=== PATIENT | female | born 1990 | race Caucasian/White ===

== ENCOUNTER → 2018-05-24 | Outpatient (CLI) | payer BC ==
[~2018-05-24] MED LIST: PREN-153 OR
[2018-05-24 11:29] LABS: Basophils # (auto) 0 uL; Basophils % (auto) 0.3 % (0.0-2.0); Eosinophils # (auto) 0.1 uL; Hematocrit 43.7 % (36.0-46.0); Hemoglobin 14.7 g/dL (12.2-16.2); Lymphocytes # (auto) 2.1 uL; Lymphocytes % (auto) 24.7 % (10.0-50.0); Mean Corpuscular Hemoglobin 27.6 pg (28.0-32.0); Mean Corpuscular Hgb Conc. 33.7 g/dL (32.0-36.0); Mean Corpuscular Volume 81.9 fL (80.0-100.0); Monocytes # (auto) 0.6 uL; Monocytes % (auto) 6.7 % (0.0-12.0); Neutrophils # (auto) 5.7 uL; Neutrophils % (auto) 67.3 % (37.0-80.0); Nucleated Red Blood Cells % 0.2 %; Platelet Count (auto) 309 10^3/uL (140-450); Red Blood Cells 5.34 10^6/uL (4.0-5.20); Red Cell Distribution Width 13.2 % (11.8-14.3); White Blood Cell 8.5 10^3/uL (4.4-10.8)
[2018-05-25 04:06] LABS: RPR Non Reactive (Non Reactive)
== END | disposition home or self-care (01) ==
LOC: LAB 09:48
PROVIDERS: ATTEND Obstetrics & Gynecology
DX: Z34.80 Encounter for supervision of other normal pregnancy, unspecified trimester (principal); Z72.51 High risk heterosexual behavior; F41.9 Anxiety disorder, unspecified; Z3A.40 40 weeks gestation of pregnancy
CPT/HCPCS: 36415; 83036; 84144; 84702; 85025; 86592; 86703; 86762; 86850; 86900; 86901; 87340

== ENCOUNTER 2018-07-05 14:11 | Emergency (ER) | payer BC ==
[~2018-07-05] VITALS: Ht 172.7 cm; Wt 74.4 kg
[2018-07-05 14:30] VITALS: BP 119/75
== END 2018-07-05 16:05 | disposition home or self-care (01) ==
LOC: ER 14:11
DX: O9A.212 Injury, poisoning and certain other consequences of external causes complicating pregnancy, second trimester (principal); M54.2 Cervicalgia; Z3A.18 18 weeks gestation of pregnancy; V43.52XA Car driver injured in collision with other type car in traffic accident, initial encounter; Y93.89 Activity, other specified; Y99.8 Other external cause status; Y92.89 Other specified places as the place of occurrence of the external cause
CPT/HCPCS: 36415; 76805; 84702

== ENCOUNTER → 2018-09-06 | Outpatient (CLI) | payer BC ==
[2018-09-06 08:11] LABS: Basophils # (auto) 0.1 uL; Basophils % (auto) 0.4 % (0.0-2.0); Eosinophils # (auto) 0.1 uL; Eosinophils % (auto) 0.8 % (0.0-7.0); Hematocrit 37.2 % (36.0-46.0); Hemoglobin 12.5 g/dL (12.2-16.2); Lymphocytes # (auto) 1.5 uL; Lymphocytes % (auto) 11.5 % (10.0-50.0); Mean Corpuscular Hemoglobin 27.8 pg (28.0-32.0); Mean Corpuscular Hgb Conc. 33.6 g/dL (32.0-36.0); Mean Corpuscular Volume 82.7 fL (80.0-100.0); Monocytes # (auto) 0.8 uL; Monocytes % (auto) 6.1 % (0.0-12.0); Neutrophils # (auto) 10.8 uL; Neutrophils % (auto) 81.2 % (37.0-80.0); Platelet Count (auto) 240 10^3/uL (140-450); Red Blood Cells 4.49 10^6/uL (4.0-5.20); Red Cell Distribution Width 13.2 % (11.8-14.3); White Blood Cell 13.3 10^3/uL (4.4-10.8)
== END | disposition home or self-care (01) ==
LOC: LAB 07:52
PROVIDERS: ATTEND Obstetrics & Gynecology
DX: O99.810 Abnormal glucose complicating pregnancy (principal); Z3A.27 27 weeks gestation of pregnancy
CPT/HCPCS: 36415; 82951; 85025

== ENCOUNTER 2018-10-19 10:10 | Observation (INO) | payer BC | END 2018-10-19 11:20 | disposition home or self-care (01) | DRG 833 | LOC: LDRP 10:10 | PROVIDERS: ADMIT Obstetrics & Gynecology; ATTEND Obstetrics & Gynecology | DX: O36.63X0 Maternal care for excessive fetal growth, third trimester, not applicable or unspecified (principal); Z3A.33 33 weeks gestation of pregnancy | CPT/HCPCS: 59025; 76818; 81002; G0378 ==

== ENCOUNTER 2018-10-25 10:13 | Observation (INO) | payer BC ==
[2018-10-25] MEDS: NIFEdipine 10 MG CAP ONE (11:36)
[2018-10-25] MEDS ORDERED: NIF10C PO (12:43)
== END 2018-10-25 12:35 | disposition home or self-care (01) | DRG 833 ==
LOC: LDRP 10:13
PROVIDERS: ADMIT Specialist; ATTEND Specialist
DX: O60.03 Preterm labor without delivery, third trimester (principal); Z3A.34 34 weeks gestation of pregnancy
CPT/HCPCS: 59025; 76815; 76818; 81002; G0378

== ENCOUNTER 2018-11-02 08:00 | Observation (INO) | payer BC ==
[~2018-11-02 08:00] MED LIST changes: +NIF10C PO
== END 2018-11-02 09:45 | disposition home or self-care (01) | DRG 833 ==
LOC: LDRP 08:00
PROVIDERS: ADMIT Specialist; ATTEND Specialist
DX: O60.03 Preterm labor without delivery, third trimester (principal); Z3A.35 35 weeks gestation of pregnancy
CPT/HCPCS: 59025; 76818; 81002; G0378

== ENCOUNTER 2018-11-07 15:05 | Observation (INO) | payer BC ==
[~2018-11-07 15:05] MED LIST changes: -NIF10C PO
[2018-11-07] MEDS ORDERED: TERBUTALINE SULFATE 1 MG/ML 1ML VIAL SC ONE (16:30)
[2018-11-07] MEDS ORDERED: TERBUTALINE SULFATE 1 MG/ML 1ML VIAL SC SCH (17:00)
== END 2018-11-07 17:20 | disposition home or self-care (01) | DRG 833 ==
LOC: LDRP 15:05
PROVIDERS: ADMIT Obstetrics & Gynecology; ATTEND Obstetrics & Gynecology
DX: O60.03 Preterm labor without delivery, third trimester (principal); O36.63X0 Maternal care for excessive fetal growth, third trimester, not applicable or unspecified; O62.9 Abnormality of forces of labor, unspecified; Z3A.36 36 weeks gestation of pregnancy
CPT/HCPCS: 59025; 76818; 81002; 96372; G0378; J3105

== ENCOUNTER → 2018-11-09 | Outpatient (CLI) | payer BC ==
[2018-11-09 10:39] LABS: Basophils # (auto) 0 uL; Basophils % (auto) 0.3 % (0.0-2.0); Eosinophils # (auto) 0.1 uL; Lymphocytes # (auto) 3.4 uL; Mean Corpuscular Hemoglobin 24.7 pg (28.0-32.0); Mean Corpuscular Hgb Conc. 32.2 g/dL (32.0-36.0); Mean Corpuscular Volume 76.6 fL (80.0-100.0)
[2018-11-09 10:40] LABS: Eosinophils % (auto) 0.7 % (0.0-7.0); Hematocrit 34.9 % (36.0-46.0); Hemoglobin 11.2 g/dL (12.2-16.2); Lymphocytes % (auto) 21.8 % (10.0-50.0); Monocytes # (auto) 1.3 uL; Monocytes % (auto) 8.4 % (0.0-12.0); Neutrophils # (auto) 10.7 uL; Neutrophils % (auto) 68.8 % (37.0-80.0); Platelet Count (auto) 346 10^3/uL (140-450); Red Blood Cells 4.55 10^6/uL (4.0-5.20); Red Cell Distribution Width 13.9 % (11.8-14.3); White Blood Cell 15.6 10^3/uL (4.4-10.8)
[2018-11-10 07:09] LABS: RPR Non Reactive (Non Reactive)
== END | disposition home or self-care (01) ==
LOC: LAB 10:26
PROVIDERS: ATTEND Obstetrics & Gynecology
DX: Z34.83 Encounter for supervision of other normal pregnancy, third trimester (principal); Z3A.36 36 weeks gestation of pregnancy
CPT/HCPCS: 36415; 85025; 86592

== ENCOUNTER 2018-11-16 14:17 | Observation (INO) | payer BC | END 2018-11-16 15:35 | disposition home or self-care (01) | DRG 833 | LOC: LDRP 14:17 | PROVIDERS: ADMIT Specialist; ATTEND Specialist | DX: O60.03 Preterm labor without delivery, third trimester (principal); Z3A.37 37 weeks gestation of pregnancy | CPT/HCPCS: 59025; 76818; 81002; G0378 ==

== ENCOUNTER 2018-11-21 01:40 | Observation (INO) | payer BC ==
[2018-11-21] MEDS ORDERED: LACTATED RINGER'S 1,000 ML IV ONE (02:07)
[2018-11-21] MEDS ORDERED: TERBUTALINE SULFATE 1 MG/ML 1ML VIAL SC ONE (02:08)
[2018-11-21] MEDS ORDERED: TERBUTALINE SULFATE 1 MG/ML 1ML VIAL SC SCH (02:15)
== END 2018-11-21 03:40 | disposition home or self-care (01) | DRG 833 ==
LOC: LDRP 01:40
PROVIDERS: ADMIT Obstetrics & Gynecology; ATTEND Obstetrics & Gynecology
DX: O62.9 Abnormality of forces of labor, unspecified (principal); Z3A.38 38 weeks gestation of pregnancy
CPT/HCPCS: 59025; 81002; 96372; G0378; J3105; 96365; 96366

== ENCOUNTER 2018-11-21 19:15 | Observation (INO) | payer BC ==
[~2018-11-21] VITALS: Ht 172.7 cm; Wt 72.6 kg
[2018-11-21 19:54] LABS: Basophils # (auto) 0.1 uL; Eosinophils # (auto) 0.1 uL; Lymphocytes # (auto) 3.3 uL; Red Cell Distribution Width 14.4 % (11.8-14.3)
[2018-11-21 19:56] LABS: Basophils % (auto) 0.6 % (0.0-2.0); Eosinophils % (auto) 0.4 % (0.0-7.0); Hematocrit 33.8 % (36.0-46.0); Mean Corpuscular Hemoglobin 24.3 pg (28.0-32.0); Mean Corpuscular Hgb Conc. 32.6 g/dL (32.0-36.0); Mean Corpuscular Volume 74.8 fL (80.0-100.0); Monocytes # (auto) 1.3 uL; Monocytes % (auto) 8.7 % (0.0-12.0); Neutrophils # (auto) 10.4 uL; Neutrophils % (auto) 68.3 % (37.0-80.0); Platelet Count (auto) 328 10^3/uL (140-450); Red Blood Cells 4.52 10^6/uL (4.0-5.20); White Blood Cell 15.2 10^3/uL (4.4-10.8)
[2018-11-21 20:02] LABS: Urine Bacteria FEW /hpf (None Seen); Urine Blood Negative /uL (Negative); Urine Specific Gravity 1.004 (1.001-1.035); Urine WBC 1 /hpf (0 - 5)
[2018-11-21] MEDS: TERBUTALINE SULFATE 1 MG/ML 1ML VIAL SC ONE ×2 (20:02→20:24)
[2018-11-21 20:07] LABS: INR 0.89 (0.9-1.15); Partial Thromboplastin Time 26.7 sec (23.78-33.04); Prothrombin Time 9.6 sec (9.27-12.13)
[2018-11-21] MEDS: TERBUTALINE SULFATE 1 MG/ML 1ML VIAL SC SCH ×2 (20:08→20:28)
[2018-11-21 20:10] LABS: Albumin 2.9 g/dL (3.4-5.0); Calcium 8.1 mg/dL (8.5-10.1); Potassium 3.7 mmol/L (3.5-5.1)
[2018-11-21 20:14] LABS: BUN/Creatinine Ratio 7.7; Bilirubin, Total 0.4 mg/dL (0.2-1.0); Total Protein 6.8 g/dL (6.4-8.2)
[2018-11-21] MEDS ORDERED: NIFEdipine 10 MG CAP PO ONE (20:30)
[2018-11-24 06:11] LABS: RPR Non Reactive (Non Reactive)
== END 2018-11-21 21:13 | disposition home or self-care (01) | DRG 833 ==
LOC: LDRP 19:15
PROVIDERS: ADMIT Obstetrics & Gynecology; ATTEND Obstetrics & Gynecology
DX: O62.9 Abnormality of forces of labor, unspecified (principal); Z3A.38 38 weeks gestation of pregnancy
CPT/HCPCS: 36415; 59025; 80053; 81001; 81002; 85025; 85610; 85730; 86592; 86850; 86900; 86901; 94760; 96372; G0378; J3105; 96375

== ENCOUNTER 2018-11-23 07:50 | Observation (INO) | payer BC ==
[2018-11-23] MEDS ORDERED: NIF10C GT (10:26)
== END 2018-11-23 09:50 | disposition home or self-care (01) | DRG 833 ==
LOC: LDRP 07:50
PROVIDERS: ADMIT Specialist; ATTEND Specialist
DX: O62.9 Abnormality of forces of labor, unspecified (principal); Z3A.00 Weeks of gestation of pregnancy not specified
CPT/HCPCS: 59025; 76818; 81002; G0378

== ENCOUNTER 2018-11-25 04:52 | Inpatient (IN) | payer BC ==
[~2018-11-25] VITALS: Ht 172.7 cm; Wt 87.1 kg
[2018-11-25] VITALS (9 sets, daily range): BP systolic 88–130; BP diastolic 64–85
[~2018-11-25 04:52] MED LIST changes: +NIF10C GT
[2018-11-25] MEDS: LACTATED RINGER'S 1,000 ML IV SCH ×2 (06:00→13:12)
[2018-11-25 06:03] LABS: Basophils # (auto) 0.1 uL; Basophils % (auto) 0.6 % (0.0-2.0); Eosinophils # (auto) 0.1 uL; Eosinophils % (auto) 1.1 % (0.0-7.0); Red Cell Distribution Width 14.4 % (11.8-14.3)
[2018-11-25 06:05] LABS: Hematocrit 34.8 % (36.0-46.0); Hemoglobin 11.3 g/dL (12.2-16.2); Lymphocytes # (auto) 3.1 uL; Lymphocytes % (auto) 25.1 % (10.0-50.0); Mean Corpuscular Hemoglobin 24.3 pg (28.0-32.0); Mean Corpuscular Hgb Conc. 32.6 g/dL (32.0-36.0); Mean Corpuscular Volume 74.4 fL (80.0-100.0); Monocytes # (auto) 0.9 uL; Monocytes % (auto) 7.4 % (0.0-12.0); Neutrophils # (auto) 8.1 uL; Neutrophils % (auto) 65.8 % (37.0-80.0); Platelet Count (auto) 343 10^3/uL (140-450); Red Blood Cells 4.67 10^6/uL (4.0-5.20); White Blood Cell 12.3 10^3/uL (4.4-10.8)
[2018-11-25 06:06] LABS: Urine Amorphous Crystal FEW /hpf (None Seen); Urine Bacteria FEW /hpf (None Seen); Urine Blood Negative /uL (Negative); Urine Specific Gravity 1.007 (1.001-1.035); Urine WBC 2 /hpf (0 - 5)
[2018-11-25 06:21] LABS: INR 0.87 (0.9-1.15); Partial Thromboplastin Time 26.8 sec (23.78-33.04); Prothrombin Time 9.4 sec (9.27-12.13)
[2018-11-25 06:33] LABS: Albumin 2.9 g/dL (3.4-5.0); Calcium 8.3 mg/dL (8.5-10.1); Potassium 3.6 mmol/L (3.5-5.1)
[2018-11-25 06:37] LABS: Bilirubin, Total 0.3 mg/dL (0.2-1.0); Total Protein 6.9 g/dL (6.4-8.2)
[2018-11-25] MEDS ORDERED: TETRACAINE 1% INJ 2 ML VIAL IJ ONE (09:55)
[2018-11-25] MEDS ORDERED: MORPHINE SULF(PF) 0.5MG/ML 10ML VIAL ONE (09:58)
[2018-11-25] MEDS ORDERED: ceFAZolin 1GM VL ONE (09:59)
[2018-11-25] MEDS ORDERED: OXYTOCIN 10 UNIT/ML 10ML VIAL ONE (09:59)
[2018-11-25] MEDS ORDERED: ePHEDrine SULFATE 50 MG/ML AMP ONE (09:59)
[2018-11-25] MEDS ORDERED: PHENYLEPHRINE HCL 10 MG/ML VL ONE (09:59)
[2018-11-25] MEDS ORDERED: D5 IV SCH (11:07)
[2018-11-25] MEDS ORDERED: LACTATED RINGERS IV SCH (11:07)
[2018-11-25] MEDS ORDERED: OXYTOCIN IV SCH (11:07)
[2018-11-25] MEDS ORDERED: MORPHINE SULFATE 10 MG/ML INJ 1ML SDV IV PRN (11:15)
[2018-11-25] MEDS ORDERED: ONDANSETRON HCL 4 MG/2 ML VIAL IV PRN ×2 (11:15→11:30)
--- NOTE | 2018-11-25 11:25 | NUR ---
Teaching: Discussed benefits of and risks associated with not . Discussed different positions, proper latch, feeding cues, and baby-led . Provided information of medication side effects related to . All questions and concerns addressed at this time. Patient verbalized understanding of information.
[2018-11-25] MEDS ORDERED: diphenhdrAMINE HCL 50 MG/1 ML VL IV PRN (11:30)
[2018-11-25] MEDS ORDERED: HYDROmorphone HCL 2 MG/ML VL IV PRN (11:30)
[2018-11-25] MEDS ORDERED: MORPHINE SULFATE 4 MG/ML SYR/VIAL IV PRN (11:30)
[2018-11-25] MEDS ORDERED: ONDANSETRON HCL 4 MG/2 ML VIAL IV ONE (11:30)
[2018-11-25] MEDS ORDERED: NALOXONE HCL 0.4 MG/ML VIAL IV PRN ×2 (11:30)
--- NOTE | 2018-11-25 11:55 | NUR ---
SBAR received from RELIEF SALESPERSON. Stated fundus 2 below, firm no bleeding. Abdominal binder in placed. SCDs on BLE. EBL 500ml. Received duramorph. Pt stable.
--- NOTE | 2018-11-25 12:25 | NUR ---
Post Op for LDRP: Received patient from PACU via bed to room 4. Patient A/A/Ox4, abdominal binder and bilateral SCD's are in place, IV fluids placed on pump and infusing per order, incisional site dressing clean/dry/intact and Costa Catheter to gravity draining clear yellow urine. Incentive Spirometer at bedside and instruction on proper use with return demonstration done by patient. Addendum: 11/25/18 at 1337 by JESSICA RANGEL RN Vital signs started as per policy. See graphics. at bedsd.
--- NOTE | 2018-11-25 12:30 | NUR ---
Reviewed information in [facility] booklet with patient.
[2018-11-25] MEDS: KETOROLAC TROMETH 30 MG/ML 1ML VIAL IV PRN ×2 (16:27→22:07)
[2018-11-25] MEDS: ceFAZolin 1GM/50ML 50 ML IV SCH (18:46)
[2018-11-25 20:37] LABS: Basophils # (auto) 0 uL; Eosinophils # (auto) 0.1 uL; Eosinophils % (auto) 0.5 % (0.0-7.0); Monocytes # (auto) 1.2 uL
[2018-11-25 20:42] LABS: Basophils % (auto) 0.3 % (0.0-2.0); Hematocrit 31.9 % (36.0-46.0); Hemoglobin 10.3 g/dL (12.2-16.2); Lymphocytes # (auto) 2.7 uL; Lymphocytes % (auto) 15.2 % (10.0-50.0); Mean Corpuscular Hemoglobin 24.4 pg (28.0-32.0); Mean Corpuscular Hgb Conc. 32.3 g/dL (32.0-36.0); Mean Corpuscular Volume 75.5 fL (80.0-100.0); Neutrophils # (auto) 13.5 uL; Nucleated Red Blood Cells % 0.1 %; Platelet Count (auto) 303 10^3/uL (140-450); Red Blood Cells 4.22 10^6/uL (4.0-5.20); Red Cell Distribution Width 14.1 % (11.8-14.3); White Blood Cell 17.5 10^3/uL (4.4-10.8)
--- NOTE | 2018-11-25 23:31 | NUR ---
Ambulation: Patient OOB with standby assistance by RN. Patient ambulated to bathroom with steady gait. Patient keeps rodriguez catheter in per 's orders until the morning. [facility] teaching provided with returned demonstration by patient. Clean gown provided and bed linen changed. Patient ambulated back to bed with steady gait and no distress noted.
[2018-11-26] MEDS: ceFAZolin 1GM/50ML 50 ML IV SCH ×2 (02:12→10:00)
[2018-11-26 03:11] VITALS: BP 108/66
[2018-11-26] MEDS: KETOROLAC TROMETH 30 MG/ML 1ML VIAL IV PRN ×2 (03:59→10:00)
[2018-11-26] MEDS: LACTATED RINGER'S 1,000 ML IV SCH ×3 (05:12→13:12)
[2018-11-26 05:52] LABS: Basophils # (auto) 0 uL; Eosinophils # (auto) 0.1 uL; Eosinophils % (auto) 0.6 % (0.0-7.0); Lymphocytes # (auto) 1.9 uL; Monocytes # (auto) 1.1 uL
[2018-11-26 05:54] LABS: Basophils % (auto) 0.1 % (0.0-2.0); Hematocrit 29.8 % (36.0-46.0); Lymphocytes % (auto) 13.5 % (10.0-50.0); Mean Corpuscular Hgb Conc. 33.4 g/dL (32.0-36.0); Mean Corpuscular Volume 74.8 fL (80.0-100.0); Monocytes % (auto) 8.1 % (0.0-12.0); Neutrophils # (auto) 10.9 uL; Neutrophils % (auto) 77.7 % (37.0-80.0); Platelet Count (auto) 283 10^3/uL (140-450); Red Blood Cells 3.99 10^6/uL (4.0-5.20); Red Cell Distribution Width 14.5 % (11.8-14.3)
[2018-11-26 07:07] LABS: RPR Non Reactive (Non Reactive)
[2018-11-26 07:30] VITALS: BP 106/61
--- NOTE | 2018-11-26 07:30 | NUR ---
Rodriguez catheter dc'd Order to discontinue rodriguez catheter. Rodriguez dc'd with clean technique following deflation of balloon. Patient tolerated well with no complaints of pain. Continue care.
[2018-11-26] MEDS ORDERED: SIMETHICONE 80 MG CHEWABLE TABLET PO PRN (11:00)
[2018-11-26] MEDS ORDERED: HYDROcodone-ACET 5/325MG TAB PO PRN (11:00)
[2018-11-26] MEDS: DOCUSATE SOD 100 MG CAP PO SCH ×2 (11:30→21:40)
[2018-11-26 12:00] VITALS: BP 93/53
[2018-11-26] MEDS: IBUPROFEN 800 MG TAB PO PRN ×2 (13:30→21:40)
[2018-11-26 15:00] VITALS: BP 101/64
[2018-11-26 18:30] VITALS: BP 102/70
--- NOTE | 2018-11-26 18:35 | NUR ---
Pt assessment completed. Lower abdominal incision inspected. Incision open to air, no redness/swelling or drainage noted, all bernice intact.
[2018-11-26 22:59] VITALS: BP 98/58
[2018-11-27] MEDS: HYDROcodone-ACET 5/325MG TAB PO PRN ×5 (00:16→21:48)
[2018-11-27 03:00] VITALS: BP 97/46
[2018-11-27 07:15] VITALS: BP 100/61
[2018-11-27] MEDS: IBUPROFEN 800 MG TAB PO PRN ×2 (07:23→15:59)
[2018-11-27] MEDS: DOCUSATE SOD 100 MG CAP PO SCH ×2 (10:11→21:46)
[2018-11-27 10:30] VITALS: BP 98/62
[2018-11-27 15:05] VITALS: BP 96/57
[2018-11-27 18:30] VITALS: BP 111/70
--- NOTE | 2018-11-27 18:30 | NUR ---
PT ASSESSMENT COMPLETED, INCISION CLEAN WITH SMALL SPOTS OF DRIED BLOOD AROUND JOSI. JOSI INTACT. NO REDNESS, WARMTH OR DRAINAGE NOTED.
--- NOTE | 2018-11-27 22:30 | NUR ---
Call placed to Carolina Pisano CNM. SBAR provided on post op day 2 RCS. Orders received to remove bernice.
[2018-11-27 22:42] VITALS: BP 104/57
[2018-11-28] MEDS: IBUPROFEN 800 MG TAB PO PRN (02:37)
[2018-11-28 02:49] VITALS: BP 112/70
[2018-11-28] MEDS: HYDROcodone-ACET 5/325MG TAB PO PRN (04:58)
--- NOTE | 2018-11-28 05:10 | NUR ---
C/S Staple Removal DC Note: [place] removed using technique. Lower abdominal incision approximated, no drainage/redness/inflammation visualized at time of removal. Incision reinforced with Steri-strips. Education provided on incisional care. Patient verbalized understanding and willingness to comply to instructions/teaching provided.
[2018-11-28 07:00] VITALS: BP 103/60
--- NOTE | 2018-11-28 08:00 | NUR ---
Discharge: Discharge instructions given as ordered. Pt encouraged to follow up with RETAIL MANAGER as instructed. All questions and concerns addressed. Patient verbalized understanding. Medication reconciliation completed and copy given to patient. . Patient encouraged to prepare to depart unit.
--- NOTE | 2018-11-28 08:40 | NUR ---
Discharge: Patient refused wheelchair, ambulated with all personal belongings, accompanied by staff and family member. No distress noted at time of departure, no adverse changes in status since initial assessment.
== END 2018-11-28 08:40 | disposition home or self-care (01) | DRG 788 ==
LOC: LDRP 04:52
PROVIDERS: ADMIT Obstetrics & Gynecology; ATTEND Obstetrics & Gynecology
PROC: 10D00Z1 Extraction of Products of Conception, Low, Open Approach (ICD-10-PCS; principal; 2018-11-25 09:59)
DX: O34.211 Maternal care for low transverse scar from previous cesarean delivery (principal); Z3A.38 38 weeks gestation of pregnancy; Z37.0 Single live birth
CPT/HCPCS: 36415; 51702; 59025; 80053; 81001; 81002; 85025; 85610; 85730; 86592; 86850; 86900; 86901; 94760; 96361; G0378; J0690; J1885; J2405; J2590